=== PATIENT | male | born 1955 | race African-American/Black ===

== ENCOUNTER 2016-07-18 18:58 | Emergency (ER) | payer BC ==
[~2016-07-18] VITALS: Ht 177.8 cm; Wt 80.0 kg
[~2016-07-18 18:58] MED LIST: ATOR40TA70; CLON0.3T; CLON0.3T4; INSASP; LANTUS; PROT40 PO
[2016-07-18] MEDS ORDERED: MECLIZINE 25MG TABLET PO ONE (19:15)
[2016-07-18 19:30] VITALS: BP 134/77
[2016-07-18 19:33] LABS: BASOPHILS % 0.5 % (0.0-2.0); EOSINOPHILS % 2.6 % (0.0-5.0); HEMOGLOBIN. 13.6 g/dL (14.0-18.0); LYMPHOCYTES % 11.9 % (20.0-50.0); MEAN CORPUSCULAR HEMOGLOBIN 28.9 pg (28.0-32.0); MEAN CORPUSCULAR HGB CONC 33.1 g/dL (31.0-37.0); MEAN CORPUSCULAR VOLUME 87.2 fL (80.0-94.0); MEAN PLATELET VOLUME 8.7 fl (7.4-10.4); MONOCYTES % 11.9 % (2.0-8.0); NEUTROPHILS % 73.1 % (40.0-76.0); PLATELET 236 x1000/uL (130-400); RED CELL DISTRIBUTION WIDTH 16.2 % (11.6-14.6); WHITE BLOOD COUNT 7.2 x1000/uL (4.5-11.0)
[2016-07-18 19:35] LABS: CHLORIDE 101 mEq/L (98-107)
[2016-07-18 19:39] LABS: PROTHROMBIN TIME 10.3 sec
[2016-07-18 19:41] LABS: ALBUMIN 3.5 g/dL (3.4-5.0); ANION GAP 13; CALCIUM 9.4 mg/dL (8.5-10.1); CARBON DIOXIDE 29 mEq/L (21-32); ETHANOL BLOOD < 10 mg/dL; INDEX HEMOLYSI 1 (1-3); INDEX ICTERIC 1 (1-4); INDEX LIPEMIC 1 (1-3); LIPASE 146 IU/L (73-393); UREA NITROGEN BLOOD 26 mg/dL (7-21)
[2016-07-18 19:43] LABS: AMMONIA 17 uMol/L (<32)
[2016-07-18 19:47] LABS: ALANINE AMINOTRANSFERASE 29 IU/L (13-61); NT PRO B-TYPE NATRIURETIC PEP 35 pg/mL (5-125); TROPONIN I < 0.02 ng/mL (0.00-0.04); eGFR 37 mL/min (>60)
[2016-07-18] MEDS ORDERED: SODIUM CHLORIDE 0.9% 1,000 ML IV ONE (21:26)
[2016-07-18 21:47] LABS: CLARITY URINE CLEAR (CLEAR); COLOR URINE YELLOW (YELLOW); GLUCOSE URINE TRACE (NEGATIVE); KETONES URINE NEGATIVE (NEGATIVE); LEUKOCYTE ESTERASE URINE NEGATIVE (NEGATIVE); NITRITE URINE NEGATIVE (NEGATIVE); OCCULT BLOOD URINE NEGATIVE (NEGATIVE); PROTEIN URINE 2+ (NEGATIVE); SPECIFIC GRAVITY URINE 1.015 (1.005-1.030); UROBILINOGEN URINE 0.2 E.U./dL (0.2-1.0)
[2016-07-18 21:58] LABS: *AMPHETAMINES SCREEN URINE NEGATIVE (NEGATIVE); *BARBITURATES SCREEN URINE NEGATIVE (NEGATIVE); *BENZODIAZEPINES SCREEN URINE NEGATIVE (NEGATIVE); *COCAINE SCREEN URINE NEGATIVE (NEGATIVE); CANNABINOID URINE SCREEN NEGATIVE (NEGATIVE); ECSTASY MDMA SCREEN URINE NEGATIVE (NEGATIVE); METHADONE URINE SCREEN NEGATIVE (NEGATIVE); OPIATES URINE SCREEN PRESUMTIVE POSITIVE (NEGATIVE); PHENCYCLIDINE URINE SCREEN NEGATIVE (NEGATIVE)
[2016-07-18 22:19] LABS: BACTERIA URINE 1+; COARSE GRANULAR CASTS URINE 0-5 /lpf; RBC URINE 0-2 /hpf (0-2); SQUAMOUS EPITHELIAL CELL URINE FEW /lpf (RARE/1+); WBC URINE 0-2 /hpf (0-2)
== END 2016-07-18 23:07 | disposition left against medical advice (07) ==
LOC: ER 18:59
DX: R42 Dizziness and giddiness (principal); R06.02 Shortness of breath; R55 Syncope and collapse; F17.200 Nicotine dependence, unspecified, uncomplicated; F12.10 Cannabis abuse, uncomplicated; E11.9 Type 2 diabetes mellitus without complications; E78.00 Pure hypercholesterolemia, unspecified; I10 Essential (primary) hypertension; F41.9 Anxiety disorder, unspecified; Z90.49 Acquired absence of other specified parts of digestive tract; Z79.4 Long term (current) use of insulin
CPT/HCPCS: 36415; 70450; 71010; 74176; 80053; 80305; 81001; 82140; 83690; 83880; 84484; 85025; 85610; 93005; 99285; G0482; Z7610

== ENCOUNTER 2016-08-05 22:26 | Emergency (ER) | payer BC ==
[~2016-08-05] VITALS: Ht 180.3 cm; Wt 90.0 kg
[2016-08-06 00:15] VITALS: BP 143/82
[2016-08-06 00:15] LABS: BASOPHILS % 0.4 % (0.0-2.0); EOSINOPHILS % 1.8 % (0.0-5.0); HEMATOCRIT. 38.8 % (42.0-52.0); HEMOGLOBIN. 12.8 g/dL (14.0-18.0); LYMPHOCYTES % 8.1 % (20.0-50.0); MEAN CORPUSCULAR HEMOGLOBIN 28.3 pg (28.0-32.0); MEAN CORPUSCULAR HGB CONC 33.1 g/dL (31.0-37.0); MEAN CORPUSCULAR VOLUME 85.4 fL (80.0-94.0); MEAN PLATELET VOLUME 8.6 fl (7.4-10.4); NEUTROPHILS % 78.7 % (40.0-76.0); PLATELET 228 x1000/uL (130-400); RED BLOOD CELL COUNT 4.54 mill/uL (4.7-6.1); RED CELL DISTRIBUTION WIDTH 15.6 % (11.6-14.6); WHITE BLOOD COUNT 11.7 x1000/uL (4.5-11.0)
[2016-08-06 00:26] LABS: CHLORIDE 103 mEq/L (98-107); INDEX HEMOLYSI 1 (1-3); INDEX ICTERIC 1 (1-4); INDEX LIPEMIC 1 (1-3)
[2016-08-06 00:30] LABS: CLARITY URINE CLEAR (CLEAR); COLOR URINE YELLOW (YELLOW); GLUCOSE URINE TRACE (NEGATIVE); KETONES URINE NEGATIVE (NEGATIVE); LEUKOCYTE ESTERASE URINE NEGATIVE (NEGATIVE); NITRITE URINE NEGATIVE (NEGATIVE); OCCULT BLOOD URINE NEGATIVE (NEGATIVE); PROTEIN URINE 2+ (NEGATIVE); SPECIFIC GRAVITY URINE 1.014 (1.005-1.030); UROBILINOGEN URINE 0.2 E.U./dL (0.2-1.0)
[2016-08-06 00:35] LABS: ALANINE AMINOTRANSFERASE 24 IU/L (13-61); ALBUMIN 3.3 g/dL (3.4-5.0); ANION GAP 13; CARBON DIOXIDE 28 mEq/L (21-32); UREA NITROGEN BLOOD 20 mg/dL (7-21); eGFR > 60 mL/min (>60)
[2016-08-06 00:47] LABS: BACTERIA URINE NONE SEEN; RBC URINE 0-2 /hpf (0-2); SQUAMOUS EPITHELIAL CELL URINE FEW /lpf (RARE/1+); WBC URINE 0-2 /hpf (0-2)
== END 2016-08-06 00:54 | disposition left against medical advice (07) ==
LOC: ER 22:26
DX: E11.649 Type 2 diabetes mellitus with hypoglycemia without coma (principal); G93.41 Metabolic encephalopathy; I10 Essential (primary) hypertension; E78.00 Pure hypercholesterolemia, unspecified; F12.10 Cannabis abuse, uncomplicated; Z86.73 Personal history of transient ischemic attack (TIA), and cerebral infarction without residual deficits; Z79.4 Long term (current) use of insulin
CPT/HCPCS: 36415; 71010; 80053; 81001; 82962; 85025; 93005; 99285; Z7610

== ENCOUNTER 2016-09-15 13:01 | Emergency (ER) | payer BC ==
[~2016-09-15] VITALS: Ht 175.3 cm; Wt 82.0 kg
[2016-09-15 13:02] VITALS: BP 157/86
[2016-09-15] MEDS ORDERED: VISCOUS LIDOCAINE 2% 15 ML UDC PO STA (14:00)
[2016-09-15] MEDS ORDERED: MAGNESIUM/ALUMINUM HYDROXIDE/SIMETHICONE 30ML UDC PO STA (14:00)
[2016-09-15] MEDS ORDERED: DICYCLOMINE 10 MG/5 ML ORAL SYR PO STA (14:00)
[2016-09-15] MEDS ORDERED: FAMOTIDINE 20MG TABLET PO ONE (14:00)
== END 2016-09-15 14:42 | disposition left against medical advice (07) ==
LOC: ER 13:17
DX: R10.84 Generalized abdominal pain (principal); E11.9 Type 2 diabetes mellitus without complications; E78.00 Pure hypercholesterolemia, unspecified; I10 Essential (primary) hypertension; F12.10 Cannabis abuse, uncomplicated; Z86.73 Personal history of transient ischemic attack (TIA), and cerebral infarction without residual deficits; Z90.49 Acquired absence of other specified parts of digestive tract; Z98.890 Other specified postprocedural states; Z87.11 Personal history of peptic ulcer disease
CPT/HCPCS: 82962; 99283; A4315

== ENCOUNTER 2016-09-15 19:09 | Emergency (ER) | payer BC ==
[~2016-09-15] VITALS: Ht 175.3 cm; Wt 70.0 kg
[2016-09-15 19:21] VITALS: BP 172/98
[2016-09-15] MEDS ORDERED: DICYCLOMINE 10 MG/5 ML ORAL SYR PO STA (19:37)
[2016-09-15] MEDS ORDERED: VISCOUS LIDOCAINE 2% 15 ML UDC PO STA (19:37)
[2016-09-15] MEDS ORDERED: MAGNESIUM/ALUMINUM HYDROXIDE/SIMETHICONE 30ML UDC PO STA (19:37)
[2016-09-15] MEDS ORDERED: FAMOTIDINE 20MG TABLET PO ONE (19:45)
== END 2016-09-15 20:26 | disposition home or self-care (01) ==
LOC: ER 19:11
DX: K21.9 Gastro-esophageal reflux disease without esophagitis (principal); E11.9 Type 2 diabetes mellitus without complications; I10 Essential (primary) hypertension; F17.210 Nicotine dependence, cigarettes, uncomplicated; Z87.11 Personal history of peptic ulcer disease; Z79.4 Long term (current) use of insulin; Z90.49 Acquired absence of other specified parts of digestive tract; Z98.890 Other specified postprocedural states
CPT/HCPCS: 99284

== ENCOUNTER 2016-10-31 13:04 | Observation (INO) | payer BC, MEDICARE ==
[~2016-10-31] VITALS: Ht 182.9 cm; Wt 68.0 kg
[2016-10-31] MEDS ORDERED: SODIUM CHLORIDE 0.9% 1,000 ML IV ONE (14:11)
[2016-10-31 14:39] LABS: BASOPHILS % 0.6 % (0.0-2.0); EOSINOPHILS % 0.6 % (0.0-5.0); HEMATOCRIT. 41.8 % (42.0-52.0); HEMOGLOBIN. 14.2 g/dL (14.0-18.0); LYMPHOCYTES % 19.6 % (20.0-50.0); MEAN CORPUSCULAR HEMOGLOBIN 29.1 pg (28.0-32.0); MEAN CORPUSCULAR VOLUME 85.7 fL (80.0-94.0); MONOCYTES % 10.7 % (2.0-8.0); NEUTROPHILS % 68.5 % (40.0-76.0); PLATELET 257 x1000/uL (130-400); RED BLOOD CELL COUNT 4.87 mill/uL (4.7-6.1); RED CELL DISTRIBUTION WIDTH 14.3 % (11.6-14.6)
[2016-10-31 14:45] LABS: CHLORIDE 100 mEq/L (98-107)
[2016-10-31 14:54] LABS: BETA HYDROXYBUTYRATE 0.2 mMol/L (0.0-0.3); CARBON DIOXIDE 30 mEq/L (21-32)
[2016-10-31] MEDS ORDERED: ASPIRIN 325MG EC TABLET PO ONE (15:30)
[2016-10-31] MEDS ORDERED: MORPHINE SULFATE 4 MG/ML CPJ (NOT FOR IM USE) IV ONE (15:45)
[2016-10-31 18:45] VITALS: BP 188/101
[2016-10-31 20:00] VITALS: BP_SYST 147; BP_SYST 169; BP_DIAS 89; BP_DIAS 92
[2016-11-01] VITALS: BP 195/110
[2016-11-01] MEDS ORDERED: TEMAZEPAM 15MG CAPSULE PO PRN (00:30)
[2016-11-01] MEDS ORDERED: CLONIDINE 0.3MG TABLET PO NR (00:30)
[2016-11-01] MEDS ORDERED: DEXTROSE 50% WATER 50ML SYRINGE IV PRN (00:30)
[2016-11-01] MEDS ORDERED: NITROGLYCERIN 0.4MG TABLET SL SL PRN (00:30)
[2016-11-01 04:00] VITALS: BP 156/83
[2016-11-01 06:16] LABS: BASOPHILS % 0.7 % (0.0-2.0); EOSINOPHILS % 1.1 % (0.0-5.0); HEMATOCRIT. 38.8 % (42.0-52.0); HEMOGLOBIN. 12.8 g/dL (14.0-18.0); LYMPHOCYTES % 26.4 % (20.0-50.0); MEAN CORPUSCULAR HEMOGLOBIN 28.8 pg (28.0-32.0); MEAN CORPUSCULAR VOLUME 87.3 fL (80.0-94.0); MEAN PLATELET VOLUME 9.7 fl (7.4-10.4); MONOCYTES % 12.4 % (2.0-8.0); NEUTROPHILS % 59.4 % (40.0-76.0); PLATELET 212 x1000/uL (130-400); RED BLOOD CELL COUNT 4.45 mill/uL (4.7-6.1); RED CELL DISTRIBUTION WIDTH 14.1 % (11.6-14.6)
[2016-11-01] MEDS: BLOOD SUGAR DIAGNOSTIC STRIP TEST SCH ×2 (06:21→11:47)
[2016-11-01] MEDS: INSULIN LISPRO 100 UNITS/ML SUBCUT SCH ×2 (06:23→12:38)
[2016-11-01 06:33] LABS: CHLORIDE 98 mEq/L (98-107)
[2016-11-01 06:42] LABS: CARBON DIOXIDE 28 mEq/L (21-32); CREATINE KINASE 137 IU/L (39-308); CREATINE KINASE MB FRACTION 3.3 ng/mL (0.5-3.6); HDL CHOLESTEROL 39 mg/dL (40-59); LDL CHOLESTEROL 79 mg/dL (5-100); TROPONIN I < 0.02 ng/mL (0.00-0.04)
[2016-11-01 08:27] VITALS: BP 141/93
[2016-11-01] MEDS ORDERED: METOPROLOL TARTRATE 25MG TABLET PO SCH (09:00)
[2016-11-01] MEDS ORDERED: ENOXAPARIN 40MG/0.4ML SYR SUBCUT SCH (09:00)
[2016-11-01] MEDS ORDERED: ASPIRIN 81MG TABLET PO SCH (09:00)
[2016-11-01] MEDS ORDERED: CLONIDINE 0.3MG TABLET PO SCH (09:00)
[2016-11-01] MEDS ORDERED: PANTOPRAZOLE SODIUM 40 MG/VIAL IV SCH (09:00)
[2016-11-01] MEDS ORDERED: INSULIN DETEMIR UD 100 UNITS/ML SYR SUBCUT SCH (11:00)
[2016-11-01 12:07] VITALS: BP 128/85
[2016-11-01 13:52] VITALS: BP 128/85
[2016-11-01] MEDS ORDERED: ATORVASTATIN CALCIUM 40MG TABLET PO SCH (21:00)
== END 2016-11-01 15:28 | disposition home or self-care (01) ==
LOC: ER 14:24 → 5WST 16:55 → INTOOBSV 16:55 → EDBEDREQ 16:59 → ENRESERV 17:33
PROVIDERS: ADMIT Internal Medicine; ATTEND Internal Medicine
DX: R07.89 Other chest pain (principal); E11.65 Type 2 diabetes mellitus with hyperglycemia; I24.9 Acute ischemic heart disease, unspecified; I10 Essential (primary) hypertension; F17.200 Nicotine dependence, unspecified, uncomplicated; Z87.11 Personal history of peptic ulcer disease
CPT/HCPCS: 36415; 80053; 80061; 82010; 82550; 82553; 82962; 84484; 85025; 93005; 93306; 96372; 96374; 96375; 99285; C9113; G0378; J1650; J1815; J2270; J7030

== ENCOUNTER 2016-11-18 13:04 | Emergency (ER) | payer BC, MEDICARE ==
[~2016-11-18] VITALS: Ht 175.3 cm; Wt 80.0 kg
[2016-11-18] MEDS ORDERED: KETOROLAC 60MG/2ML VIAL IM ONE (14:30)
[2016-11-18 16:20] VITALS: BP 152/86
== END 2016-11-18 17:00 | disposition left against medical advice (07) ==
LOC: ER 13:21
DX: M79.605 Pain in left leg (principal); M79.604 Pain in right leg; E11.9 Type 2 diabetes mellitus without complications; I10 Essential (primary) hypertension; F17.210 Nicotine dependence, cigarettes, uncomplicated; Z79.4 Long term (current) use of insulin; Z86.718 Personal history of other venous thrombosis and embolism; Z79.01 Long term (current) use of anticoagulants
CPT/HCPCS: 73590; 96372; 99284; J1885; Z7610

== ENCOUNTER 2016-12-07 11:33 | Emergency (ER) | payer BC, MEDICARE ==
[~2016-12-07] VITALS: Ht 182.9 cm; Wt 81.0 kg
[~2016-12-07 11:33] MED LIST changes: +ATOR20TA65 PO; -ATOR40TA70; -CLON0.3T; -CLON0.3T4; +CLON0.3T4 PO; -INSASP; +INSLAN SQ; +INSULIN ASPART U SUBCUT; -LANTUS; +NIFE60TA64 PO; +ZOLP5TAB2 PO
[2016-12-07] MEDS ORDERED: SODIUM CHLORIDE 0.9% 1,000 ML IV ONE (12:42)
[2016-12-07 13:45] LABS: BASOPHILS % 0.5 % (0.0-2.0); EOSINOPHILS % 0.7 % (0.0-5.0); HEMATOCRIT. 42.3 % (42.0-52.0); HEMOGLOBIN. 14.1 g/dL (14.0-18.0); LYMPHOCYTES % 22.2 % (20.0-50.0); MEAN CORPUSCULAR HEMOGLOBIN 28.8 pg (28.0-32.0); MEAN CORPUSCULAR VOLUME 86.4 fL (80.0-94.0); MEAN PLATELET VOLUME 9.6 fl (7.4-10.4); MONOCYTES % 10.5 % (2.0-8.0); NEUTROPHILS % 66.1 % (40.0-76.0); PLATELET 229 x1000/uL (130-400); RED CELL DISTRIBUTION WIDTH 13.8 % (11.6-14.6)
[2016-12-07] MEDS ORDERED: INSULIN REGULAR (HUMULIN R) 300UNITS/3ML SUBCUT ONE (13:45)
[2016-12-07 13:58] LABS: BETA HYDROXYBUTYRATE 0.1 mMol/L (0.0-0.3); CARBON DIOXIDE 32 mEq/L (21-32); CHLORIDE 102 mEq/L (98-107)
[2016-12-07] MEDS ORDERED: SODIUM CHLORIDE 0.9% 500 ML IV ONE (15:00)
[2016-12-07 15:36] VITALS: BP 144/90
== END 2016-12-07 16:31 | disposition home or self-care (01) ==
LOC: ER 11:58
DX: E11.65 Type 2 diabetes mellitus with hyperglycemia (principal); I10 Essential (primary) hypertension; Z91.14 Patient's other noncompliance with medication regimen; Z86.73 Personal history of transient ischemic attack (TIA), and cerebral infarction without residual deficits; Z79.4 Long term (current) use of insulin
CPT/HCPCS: 36415; 80053; 82010; 82962; 85025; 96360; 96361; 96372; 99285; J1815; J7030; J7040; Z7610

== ENCOUNTER 2017-01-01 11:09 | Emergency (ER) | payer BC ==
[~2017-01-01] VITALS: Ht 172.7 cm; Wt 88.0 kg
[2017-01-01] MEDS ORDERED: ASPIRIN 81MG TABLET PO STA (13:19)
[2017-01-01] MEDS ORDERED: NITROGLYCERIN 0.4MG TABLET SL SL PRN (13:30)
[2017-01-01 14:05] LABS: BASOPHILS % 0.7 % (0.0-2.0); EOSINOPHILS % 0.9 % (0.0-5.0); HEMOGLOBIN. 14.8 g/dL (14.0-18.0); LYMPHOCYTES % 23.4 % (20.0-50.0); MEAN CORPUSCULAR HEMOGLOBIN 28.5 pg (28.0-32.0); MEAN CORPUSCULAR VOLUME 84.6 fL (80.0-94.0); MEAN PLATELET VOLUME 8.9 fl (7.4-10.4); MONOCYTES % 10.6 % (2.0-8.0); NEUTROPHILS % 64.4 % (40.0-76.0); PLATELET 247 x1000/uL (130-400); RED CELL DISTRIBUTION WIDTH 13.8 % (11.6-14.6)
[2017-01-01 14:16] LABS: D-DIMER 0.61 mg/L FEU (<0.50); PARTIAL THROMBOPLASTIN TIME 23.5 sec (23.4-31.0); PROTHROMBIN TIME 10.3 sec (9.4-11.6)
[2017-01-01 14:18] LABS: CARBON DIOXIDE 30 mEq/L (21-32); CHLORIDE 102 mEq/L (98-107)
[2017-01-01 14:23] LABS: TROPONIN I < 0.02 ng/mL (0.00-0.04)
[2017-01-01] MEDS ORDERED: ACETAMINOPHEN 325MG TABLET PO PRN (16:00)
[2017-01-01] MEDS ORDERED: CLONIDINE 0.1MG TABLET PO PRN (16:00)
[2017-01-01] MEDS ORDERED: IPRATROPIUM/ALBUTEROL 0.5-3(2.5)MG/3ML NEB INH PRN (16:00)
[2017-01-01] MEDS ORDERED: ENOXAPARIN 40MG/0.4ML SYR SUBCUT SCH (16:00)
[2017-01-01 17:53] VITALS: BP 152/86
[2017-01-02] MEDS ORDERED: ASPIRIN 81MG EC TABLET PO SCH (09:00)
[2017-03-04] MEDS ORDERED: NVLG73 SUBCUT ×3 (17:14→17:19)
== END 2017-01-01 17:57 | disposition home or self-care (01) ==
LOC: ER 11:45 → EDBEDREQ 15:39 → CANRESERV 16:17 → ENRESERV 16:17 → CANBEDREQ 17:11 → ER 17:57
DX: R07.2 Precordial pain (principal); E11.9 Type 2 diabetes mellitus without complications; F17.210 Nicotine dependence, cigarettes, uncomplicated; Z86.73 Personal history of transient ischemic attack (TIA), and cerebral infarction without residual deficits; Z79.4 Long term (current) use of insulin
CPT/HCPCS: 36415; 71010; 71275; 80048; 84484; 85025; 85379; 85610; 85730; 93005; 99285; Z7610

== ENCOUNTER 2017-01-12 18:50 | Inpatient (IN) | payer MEDICARE, BC ==
[~2017-01-12] VITALS: Ht 182.9 cm; Wt 69.9 kg
[2017-01-12] MEDS ORDERED: SODIUM CHLORIDE 0.9% 1,000 ML IV ONE (19:02)
[2017-01-12] MEDS ORDERED: ASPIRIN 81MG TABLET PO STA (19:05)
[2017-01-12] MEDS ORDERED: FAMOTIDINE 20MG/2ML VIAL IV ONE (19:15)
[2017-01-12] MEDS ORDERED: INSULIN REGULAR (HUMULIN R) 300UNITS/3ML SUBCUT ONE ×2 (19:15→22:30)
[2017-01-12] MEDS ORDERED: NITROGLYCERIN 0.4MG TABLET SL SL PRN (19:15)
[2017-01-12 19:27] LABS: BASOPHILS % 0.6 % (0.0-2.0); EOSINOPHILS % 0.7 % (0.0-5.0); HEMATOCRIT. 39.9 % (42.0-52.0); HEMOGLOBIN. 13.4 g/dL (14.0-18.0); LYMPHOCYTES % 12.5 % (20.0-50.0); MEAN CORPUSCULAR HEMOGLOBIN 28.4 pg (28.0-32.0); MEAN CORPUSCULAR VOLUME 84.6 fL (80.0-94.0); MEAN PLATELET VOLUME 9.5 fl (7.4-10.4); MONOCYTES % 10.8 % (2.0-8.0); NEUTROPHILS % 75.4 % (40.0-76.0); PLATELET 193 x1000/uL (130-400); RED BLOOD CELL COUNT 4.72 mill/uL (4.7-6.1); RED CELL DISTRIBUTION WIDTH 14.3 % (11.6-14.6)
[2017-01-12 19:33] LABS: CHLORIDE 97 mEq/L (98-107)
[2017-01-12 19:36] LABS: PARTIAL THROMBOPLASTIN TIME 23.3 sec (23.4-31.0); PROTHROMBIN TIME 10.3 sec (9.4-11.6)
[2017-01-12 19:38] LABS: CARBON DIOXIDE 31 mEq/L (21-32)
[2017-01-12 19:42] LABS: TROPONIN I 0.07 ng/mL (0.00-0.04)
[2017-01-12] MEDS ORDERED: CLONIDINE 0.2MG TABLET PO ONE (19:45)
[2017-01-13] MEDS: ACETAMINOPHEN 325MG TABLET PO PRN ×2 (04:35→20:10)
[2017-01-13 05:30] VITALS: BP 150/80
[2017-01-13] MEDS ORDERED: DEXTROSE 50% WATER 50ML SYRINGE IV PRN (06:15)
[2017-01-13] MEDS: INSULIN LISPRO 100 UNITS/ML SUBCUT SCH ×4 (06:42→21:05)
[2017-01-13] MEDS: BLOOD SUGAR DIAGNOSTIC STRIP TEST SCH ×4 (06:42→21:05)
[2017-01-13] MEDS: SODIUM CHLORIDE 0.9% INJ 3ML FLUSH IVF SCH ×3 (06:51→21:04)
[2017-01-13] MEDS: CLONIDINE 0.3MG TABLET PO SCH ×3 (06:51→21:03)
[2017-01-13 07:50] LABS: BASOPHILS % 0.8 % (0.0-2.0); EOSINOPHILS % 2.3 % (0.0-5.0); HEMATOCRIT. 40.5 % (42.0-52.0); HEMOGLOBIN. 13.6 g/dL (14.0-18.0); LYMPHOCYTES % 18.6 % (20.0-50.0); MEAN CORPUSCULAR HEMOGLOBIN 28.5 pg (28.0-32.0); MEAN CORPUSCULAR VOLUME 84.6 fL (80.0-94.0); MEAN PLATELET VOLUME 9.7 fl (7.4-10.4); MONOCYTES % 11.3 % (2.0-8.0); PLATELET 204 x1000/uL (130-400); RED BLOOD CELL COUNT 4.79 mill/uL (4.7-6.1); RED CELL DISTRIBUTION WIDTH 14.2 % (11.6-14.6)
[2017-01-13 08:00] VITALS: BP 120/65
[2017-01-13 08:12] VITALS: BP_SYST 120; BP_SYST 144; BP_DIAS 60; BP_DIAS 65
[2017-01-13 08:56] LABS: CARBON DIOXIDE 29 mEq/L (21-32); CHLORIDE 103 mEq/L (98-107); HDL CHOLESTEROL 45 mg/dL (40-59); LDL CHOLESTEROL 109 mg/dL (5-100); TROPONIN I 0.05 ng/mL (0.00-0.04)
[2017-01-13] MEDS: NIFEDIPINE XL 60MG TAB PO SCH (09:38)
[2017-01-13] MEDS ORDERED: INSULIN DETEMIR UD 100 UNITS/ML SYR SUBCUT NR (10:00)
[2017-01-13 12:12] VITALS: BP 136/71
[2017-01-13 15:12] LABS: CLARITY URINE CLEAR (CLEAR); COLOR URINE YELLOW (YELLOW); GLUCOSE URINE 3+ (NEGATIVE); KETONES URINE NEGATIVE (NEGATIVE); LEUKOCYTE ESTERASE URINE NEGATIVE (NEGATIVE); NITRITE URINE NEGATIVE (NEGATIVE); OCCULT BLOOD URINE NEGATIVE (NEGATIVE); PH URINE 5.5 (4.5-8.0); PROTEIN URINE 2+ (NEGATIVE); SPECIFIC GRAVITY URINE 1.021 (1.005-1.030)
[2017-01-13 16:00] VITALS: BP 139/69
[2017-01-13] MEDS ORDERED: ZOLPIDEM TARTRATE 5MG TABLET PO SCH (17:00)
[2017-01-13 20:00] VITALS: BP 138/79
[2017-01-13] MEDS ORDERED: PANTOPRAZOLE 40MG DR TABLET PO SCH (21:00)
[2017-01-13] MEDS ORDERED: ZOLPIDEM TARTRATE 5MG TABLET PO PRN (21:00)
[2017-01-13] MEDS: ATORVASTATIN CALCIUM 20MG TABLET PO SCH (21:03)
[2017-01-13] MEDS: ZOLPIDEM TARTRATE 5MG TABLET PO SCH (21:03)
[2017-01-14] VITALS: BP 144/66
[2017-01-14 04:00] VITALS: BP 157/89
[2017-01-14] MEDS: SODIUM CHLORIDE 0.9% INJ 3ML FLUSH IVF SCH ×3 (06:17→21:06)
[2017-01-14] MEDS: BLOOD SUGAR DIAGNOSTIC STRIP TEST SCH ×4 (06:19→21:06)
[2017-01-14 08:00] VITALS: BP 130/85
[2017-01-14] MEDS: INSULIN LISPRO 100 UNITS/ML SUBCUT SCH ×4 (08:29→21:08)
[2017-01-14] MEDS: NIFEDIPINE XL 60MG TAB PO SCH (08:30)
[2017-01-14] MEDS: CLONIDINE 0.3MG TABLET PO SCH ×2 (08:30→21:06)
[2017-01-14 12:00] VITALS: BP 138/82
[2017-01-14] MEDS ORDERED: LACTULOSE 20G/30ML UDC PO NR (14:45)
[2017-01-14 16:00] VITALS: BP 140/65
[2017-01-14] MEDS ORDERED: INSULIN LISPRO 100 UNITS/ML SUBCUT NR (17:15)
[2017-01-14 20:37] VITALS: BP 166/88
[2017-01-14] MEDS: ZOLPIDEM TARTRATE 5MG TABLET PO SCH (21:06)
[2017-01-14] MEDS: ATORVASTATIN CALCIUM 20MG TABLET PO SCH (21:06)
[2017-01-14] MEDS: PANTOPRAZOLE 40MG DR TABLET PO SCH (21:06)
[2017-01-15 00:20] VITALS: BP 108/54
[2017-01-15 04:00] VITALS: BP 164/87
[2017-01-15] MEDS: PANTOPRAZOLE 40MG DR TABLET PO SCH (06:15)
[2017-01-15] MEDS: SODIUM CHLORIDE 0.9% INJ 3ML FLUSH IVF SCH ×2 (06:15→13:09)
[2017-01-15] MEDS: BLOOD SUGAR DIAGNOSTIC STRIP TEST SCH ×2 (06:16→11:42)
[2017-01-15 08:00] VITALS: BP 129/76
[2017-01-15] MEDS: INSULIN LISPRO 100 UNITS/ML SUBCUT SCH ×2 (08:25→13:08)
[2017-01-15] MEDS: CLONIDINE 0.3MG TABLET PO SCH (08:28)
[2017-01-15] MEDS: NIFEDIPINE XL 60MG TAB PO SCH (08:34)
[2017-01-15 12:00] VITALS: BP 144/82
[2017-01-15 12:31] VITALS: BP 144/82
[2017-03-04] MEDS ORDERED: NVLG73 SUBCUT ×3 (17:14→17:19)
== END 2017-01-15 15:15 | disposition home or self-care (01) | DRG 392 ==
LOC: ER 19:56 → OBSVTOIN 21:21 → 6WST 21:21 → INTOOBSV 21:21 → EDBEDREQ 21:38 → ENRESERV 01-13 04:29
PROVIDERS: ADMIT Ophthalmology; ATTEND Ophthalmology
DX: K59.00 Constipation, unspecified (principal); K56.60 Unspecified intestinal obstruction; I10 Essential (primary) hypertension; R07.9 Chest pain, unspecified; E11.9 Type 2 diabetes mellitus without complications; R74.8 Abnormal levels of other serum enzymes; Z86.73 Personal history of transient ischemic attack (TIA), and cerebral infarction without residual deficits; Z79.4 Long term (current) use of insulin; Z79.899 Other long term (current) drug therapy
CPT/HCPCS: 36415; 71010; 74000; 74176; 80048; 80061; 81001; 82962; 83036; 83880; 84443; 84484; 85025; 85610; 85730; 87077; 87086; 87186; 93005; 96361; 96372; 96374; 99285; J1815; J3490; J7030

== ENCOUNTER 2017-02-22 10:51 | Emergency (ER) | payer BC, MEDICARE ==
[~2017-02-22] VITALS: Ht 170.2 cm; Wt 97.0 kg
[2017-02-22] MEDS ORDERED: SODIUM CHLORIDE 0.9% 1,000 ML IV ONE (11:02)
[2017-02-22] MEDS ORDERED: INSULIN REGULAR (HUMULIN R) UD 100 UNITS/ML SYR IV ONE (11:15)
[2017-02-22 11:45] LABS: BASOPHILS % 0.7 % (0.0-2.0); CHLORIDE 102 mEq/L (98-107); EOSINOPHILS % 0.7 % (0.0-5.0); LYMPHOCYTES % 16.1 % (20.0-50.0); MEAN CORPUSCULAR HEMOGLOBIN 28.2 pg (28.0-32.0); MEAN CORPUSCULAR VOLUME 82.9 fL (80.0-94.0); MEAN PLATELET VOLUME 9.7 fl (7.4-10.4); NEUTROPHILS % 71.5 % (40.0-76.0); PLATELET 189 x1000/uL (130-400); RED BLOOD CELL COUNT 4.94 mill/uL (4.7-6.1); RED CELL DISTRIBUTION WIDTH 14.3 % (11.6-14.6)
[2017-02-22 11:54] LABS: CARBON DIOXIDE 26 mEq/L (21-32)
[2017-02-22 11:55] LABS: ETHANOL BLOOD < 10 mg/dL
[2017-02-22] MEDS ORDERED: LABETALOL HCL 20MG/4ML CARPUJECT IV PRN (12:00)
[2017-02-22 12:43] VITALS: BP 156/97
[2017-03-04] MEDS ORDERED: NVLG73 SUBCUT ×3 (17:14→17:19)
== END 2017-02-22 13:51 | disposition home or self-care (01) ==
LOC: ER 11:40
DX: R53.1 Weakness (principal); I10 Essential (primary) hypertension; E11.9 Type 2 diabetes mellitus without complications; Z86.73 Personal history of transient ischemic attack (TIA), and cerebral infarction without residual deficits; Z79.4 Long term (current) use of insulin
CPT/HCPCS: 36415; 71010; 80053; 82962; 85025; 85610; 93005; 96360; 99285; G0482; J1815; J7030